=== PATIENT | female | born 1945 | race Caucasian/White ===

== ENCOUNTER 2022-02-11 08:39 | Outpatient (CLI) | payer MEDICAID, SELFPAY | END 2022-02-11 08:40 | disposition home or self-care (01) | LOC: WOUND 08:40 | PROVIDERS: Visit Provider Nurse Practitioner Family | DX: I83.023 Varicose veins of left lower extremity with ulcer of ankle (principal); L97.329 Non-pressure chronic ulcer of left ankle with unspecified severity | CPT/HCPCS: 11042 ==

== ENCOUNTER 2022-02-18 08:41 | Outpatient (CLI) | payer MEDICAID, SELFPAY | END 2022-02-18 08:42 | disposition home or self-care (01) | LOC: WOUND 08:42 | PROVIDERS: Visit Provider Surgery | DX: I83.025 Varicose veins of left lower extremity with ulcer other part of foot (principal); L97.522 Non-pressure chronic ulcer of other part of left foot with fat layer exposed | CPT/HCPCS: 97597 ==

== ENCOUNTER 2022-02-25 08:57 | Outpatient (CLI) | payer MEDICAID, SELFPAY | END 2022-02-25 08:58 | disposition home or self-care (01) | LOC: WOUND 08:57 | PROVIDERS: Visit Provider Surgery | DX: I83.025 Varicose veins of left lower extremity with ulcer other part of foot (principal); L97.522 Non-pressure chronic ulcer of other part of left foot with fat layer exposed | CPT/HCPCS: 11042; 15271; Q4128 ==

== ENCOUNTER 2022-03-04 08:24 | Outpatient (CLI) | payer MEDICAID, SELFPAY | END 2022-03-04 08:25 | disposition home or self-care (01) | LOC: WOUND 08:25 | PROVIDERS: Visit Provider Surgery | DX: I83.025 Varicose veins of left lower extremity with ulcer other part of foot (principal); L97.522 Non-pressure chronic ulcer of other part of left foot with fat layer exposed; I70.243 Atherosclerosis of native arteries of left leg with ulceration of ankle; L97.322 Non-pressure chronic ulcer of left ankle with fat layer exposed | CPT/HCPCS: 99214 ==

== ENCOUNTER 2022-03-11 08:22 | Outpatient (CLI) | payer MEDICAID, SELFPAY | END 2022-03-11 08:23 | disposition home or self-care (01) | LOC: WOUND 08:22 | PROVIDERS: Visit Provider Surgery | DX: I83.023 Varicose veins of left lower extremity with ulcer of ankle (principal); L97.329 Non-pressure chronic ulcer of left ankle with unspecified severity | CPT/HCPCS: 97597 ==

== ENCOUNTER 2022-03-18 08:21 | Outpatient (CLI) | payer MEDICARE, SELFPAY | END 2022-03-18 08:22 | disposition home or self-care (01) | PROVIDERS: Visit Provider Surgery | DX: I83.025 Varicose veins of left lower extremity with ulcer other part of foot (principal); L97.522 Non-pressure chronic ulcer of other part of left foot with fat layer exposed | CPT/HCPCS: 97602 ==

== ENCOUNTER 2022-03-25 08:11 | Outpatient (CLI) | payer MEDICARE, SELFPAY | END 2022-03-25 08:12 | disposition home or self-care (01) | LOC: WOUND 08:11 | PROVIDERS: Visit Provider Surgery | DX: I83.025 Varicose veins of left lower extremity with ulcer other part of foot (principal); L97.522 Non-pressure chronic ulcer of other part of left foot with fat layer exposed | CPT/HCPCS: 99213 ==

== ENCOUNTER 2022-04-01 07:57 | Outpatient (CLI) | payer MEDICARE, SELFPAY | END 2022-04-01 07:58 | disposition home or self-care (01) | PROVIDERS: Visit Provider Surgery | DX: S91.002A Unspecified open wound, left ankle, initial encounter (principal) | CPT/HCPCS: 97597 ==

== ENCOUNTER 2022-04-08 08:05 | Outpatient (CLI) | payer MEDICARE, SELFPAY | END 2022-04-08 08:06 | disposition home or self-care (01) | LOC: WOUND 08:06 | PROVIDERS: Visit Provider Surgery | DX: I83.025 Varicose veins of left lower extremity with ulcer other part of foot (principal); L97.522 Non-pressure chronic ulcer of other part of left foot with fat layer exposed | CPT/HCPCS: 99213 ==

== ENCOUNTER 2022-04-15 08:11 | Outpatient (CLI) | payer MEDICARE, SELFPAY | END 2022-04-15 08:12 | disposition home or self-care (01) | LOC: WOUND 08:11 | PROVIDERS: Visit Provider Surgery | DX: I87.312 Chronic venous hypertension (idiopathic) with ulcer of left lower extremity (principal); L97.322 Non-pressure chronic ulcer of left ankle with fat layer exposed | CPT/HCPCS: 97597 ==

== ENCOUNTER 2022-04-22 09:20 | Outpatient (CLI) | payer MEDICARE, SELFPAY | END 2022-04-22 09:21 | disposition home or self-care (01) | LOC: WOUND 09:20 | PROVIDERS: Visit Provider Surgery | DX: I83.025 Varicose veins of left lower extremity with ulcer other part of foot (principal); L97.522 Non-pressure chronic ulcer of other part of left foot with fat layer exposed | CPT/HCPCS: 99213 ==

== ENCOUNTER 2022-04-29 08:06 | Outpatient (CLI) | payer MEDICARE, SELFPAY | END 2022-04-29 08:07 | disposition home or self-care (01) | PROVIDERS: Visit Provider Surgery | DX: I83.023 Varicose veins of left lower extremity with ulcer of ankle (principal); L97.329 Non-pressure chronic ulcer of left ankle with unspecified severity | CPT/HCPCS: 97597 ==

== ENCOUNTER 2022-05-06 08:08 | Outpatient (CLI) | payer MEDICARE, SELFPAY | END 2022-05-06 08:09 | disposition home or self-care (01) | LOC: WOUND 08:08 | PROVIDERS: Visit Provider Surgery | DX: I83.025 Varicose veins of left lower extremity with ulcer other part of foot (principal); L97.522 Non-pressure chronic ulcer of other part of left foot with fat layer exposed | CPT/HCPCS: 15275; Q4158 ==

== ENCOUNTER 2022-05-13 08:44 | Outpatient (CLI) | payer MEDICARE, SELFPAY | END 2022-05-13 08:45 | disposition home or self-care (01) | LOC: WOUND 08:45 | PROVIDERS: Visit Provider Surgery | DX: I83.023 Varicose veins of left lower extremity with ulcer of ankle (principal); L97.328 Non-pressure chronic ulcer of left ankle with other specified severity; L97.329 Non-pressure chronic ulcer of left ankle with unspecified severity | CPT/HCPCS: 15271; 15275; 97597; Q4158 ==

== ENCOUNTER 2022-05-20 08:09 | Outpatient (CLI) | payer MEDICARE, SELFPAY | END 2022-05-20 08:10 | disposition home or self-care (01) | LOC: WOUND 08:09 | PROVIDERS: Visit Provider Surgery | DX: I83.023 Varicose veins of left lower extremity with ulcer of ankle (principal); L97.329 Non-pressure chronic ulcer of left ankle with unspecified severity | CPT/HCPCS: 97597 ==

== ENCOUNTER 2022-05-27 08:10 | Outpatient (CLI) | payer MEDICARE, SELFPAY | END 2022-05-27 08:11 | disposition home or self-care (01) | LOC: WOUND 08:10 | PROVIDERS: Visit Provider Surgery | DX: I83.023 Varicose veins of left lower extremity with ulcer of ankle (principal); L97.329 Non-pressure chronic ulcer of left ankle with unspecified severity | CPT/HCPCS: 97597 ==

== ENCOUNTER 2022-06-03 08:08 | Outpatient (CLI) | payer MEDICARE, SELFPAY | END 2022-06-03 08:09 | disposition home or self-care (01) | LOC: WOUND 08:08 | PROVIDERS: Visit Provider Nurse Practitioner Family | DX: I83.023 Varicose veins of left lower extremity with ulcer of ankle (principal); L97.329 Non-pressure chronic ulcer of left ankle with unspecified severity | CPT/HCPCS: 11042 ==

== ENCOUNTER 2022-06-10 08:10 | Outpatient (CLI) | payer MEDICARE, SELFPAY | END 2022-06-10 08:11 | disposition home or self-care (01) | LOC: WOUND 08:10 | PROVIDERS: Visit Provider Surgery | DX: I83.023 Varicose veins of left lower extremity with ulcer of ankle (principal); L97.329 Non-pressure chronic ulcer of left ankle with unspecified severity | CPT/HCPCS: 97597 ==

== ENCOUNTER 2022-06-17 08:09 | Outpatient (CLI) | payer MEDICARE, SELFPAY | END 2022-06-17 08:10 | disposition home or self-care (01) | LOC: WOUND 08:10 | PROVIDERS: Visit Provider Surgery | DX: I83.023 Varicose veins of left lower extremity with ulcer of ankle (principal); L97.329 Non-pressure chronic ulcer of left ankle with unspecified severity | CPT/HCPCS: 97597 ==

== ENCOUNTER 2022-06-24 08:09 | Outpatient (CLI) | payer MEDICARE, SELFPAY | END 2022-06-24 08:10 | disposition home or self-care (01) | LOC: WOUND 08:09 | PROVIDERS: Visit Provider Surgery | DX: I83.023 Varicose veins of left lower extremity with ulcer of ankle (principal); L97.328 Non-pressure chronic ulcer of left ankle with other specified severity | CPT/HCPCS: 15271; 97597; Q4158 ==

== ENCOUNTER 2022-07-01 08:06 | Outpatient (CLI) | payer MEDICARE, SELFPAY | END 2022-07-01 08:07 | disposition home or self-care (01) | LOC: WOUND 08:06 | PROVIDERS: Visit Provider Surgery | DX: I83.023 Varicose veins of left lower extremity with ulcer of ankle (principal); L97.328 Non-pressure chronic ulcer of left ankle with other specified severity | CPT/HCPCS: 15271; 15275; Q4158 ==

== ENCOUNTER 2022-07-08 08:08 | Outpatient (CLI) | payer MEDICARE, SELFPAY | END 2022-07-08 08:09 | disposition home or self-care (01) | LOC: WOUND 08:08 | PROVIDERS: Visit Provider Surgery | DX: I83.025 Varicose veins of left lower extremity with ulcer other part of foot (principal); L97.522 Non-pressure chronic ulcer of other part of left foot with fat layer exposed | CPT/HCPCS: 97597 ==

== ENCOUNTER 2022-07-22 08:07 | Outpatient (CLI) | payer MEDICARE, SELFPAY | END 2022-07-22 08:08 | disposition home or self-care (01) | LOC: WOUND 08:08 | PROVIDERS: Visit Provider Surgery | DX: I83.025 Varicose veins of left lower extremity with ulcer other part of foot (principal); L97.522 Non-pressure chronic ulcer of other part of left foot with fat layer exposed | CPT/HCPCS: 97597 ==

== ENCOUNTER 2022-07-29 08:09 | Outpatient (CLI) | payer MEDICARE, SELFPAY | END 2022-07-29 08:10 | disposition home or self-care (01) | LOC: WOUND 08:09 | PROVIDERS: Visit Provider Nurse Practitioner Family | DX: I83.023 Varicose veins of left lower extremity with ulcer of ankle (principal); L97.328 Non-pressure chronic ulcer of left ankle with other specified severity | CPT/HCPCS: 11042 ==

== ENCOUNTER 2022-08-05 08:04 | Outpatient (CLI) | payer MEDICARE, SELFPAY | END 2022-08-05 08:05 | disposition home or self-care (01) | LOC: WOUND 08:04 | PROVIDERS: Visit Provider Surgery | DX: I83.025 Varicose veins of left lower extremity with ulcer other part of foot (principal); L97.522 Non-pressure chronic ulcer of other part of left foot with fat layer exposed | CPT/HCPCS: 97602; 99213 ==

== ENCOUNTER 2022-08-12 08:03 | Outpatient (CLI) | payer MEDICARE, SELFPAY | END 2022-08-12 08:04 | disposition home or self-care (01) | LOC: WOUND 08:03 | PROVIDERS: Visit Provider Surgery | DX: I83.025 Varicose veins of left lower extremity with ulcer other part of foot (principal); L97.522 Non-pressure chronic ulcer of other part of left foot with fat layer exposed; I83.023 Varicose veins of left lower extremity with ulcer of ankle; L97.329 Non-pressure chronic ulcer of left ankle with unspecified severity | CPT/HCPCS: 99213 ==

== ENCOUNTER 2022-08-27 10:15 | Outpatient (CLI) | payer MEDICARE, SELFPAY | END 2022-08-27 10:16 | disposition home or self-care (01) | PROVIDERS: Visit Provider Nurse Practitioner Family | DX: I83.023 Varicose veins of left lower extremity with ulcer of ankle (principal); L97.329 Non-pressure chronic ulcer of left ankle with unspecified severity; I83.025 Varicose veins of left lower extremity with ulcer other part of foot; L97.522 Non-pressure chronic ulcer of other part of left foot with fat layer exposed | CPT/HCPCS: 97597 ==

== ENCOUNTER 2022-09-02 07:49 | Outpatient (CLI) | payer MEDICARE, SELFPAY | END 2022-09-02 07:50 | disposition home or self-care (01) | LOC: WOUND 07:49 | PROVIDERS: Visit Provider Surgery | DX: I83.025 Varicose veins of left lower extremity with ulcer other part of foot (principal); L97.522 Non-pressure chronic ulcer of other part of left foot with fat layer exposed; L97.329 Non-pressure chronic ulcer of left ankle with unspecified severity | CPT/HCPCS: 99213 ==

== ENCOUNTER 2022-09-09 08:08 | Outpatient (CLI) | payer MEDICARE, SELFPAY | END 2022-09-09 08:09 | disposition home or self-care (01) | LOC: WOUND 08:08 | PROVIDERS: Visit Provider Surgery | DX: I83.025 Varicose veins of left lower extremity with ulcer other part of foot (principal); L97.522 Non-pressure chronic ulcer of other part of left foot with fat layer exposed; I83.023 Varicose veins of left lower extremity with ulcer of ankle; L97.328 Non-pressure chronic ulcer of left ankle with other specified severity | CPT/HCPCS: 97597 ==

== ENCOUNTER 2022-09-16 08:15 | Outpatient (CLI) | payer MEDICARE, SELFPAY | END 2022-09-16 08:16 | disposition home or self-care (01) | LOC: WOUND 08:15 | PROVIDERS: Visit Provider Surgery | DX: I83.025 Varicose veins of left lower extremity with ulcer other part of foot (principal); L97.522 Non-pressure chronic ulcer of other part of left foot with fat layer exposed; I83.023 Varicose veins of left lower extremity with ulcer of ankle; L97.328 Non-pressure chronic ulcer of left ankle with other specified severity | CPT/HCPCS: 97597; 99213 ==

== ENCOUNTER 2022-09-23 08:19 | Outpatient (CLI) | payer MEDICARE, SELFPAY | END 2022-09-23 08:20 | disposition home or self-care (01) | LOC: WOUND 08:19 | PROVIDERS: Visit Provider Physician Assistant Surgical | DX: I83.025 Varicose veins of left lower extremity with ulcer other part of foot (principal); L97.522 Non-pressure chronic ulcer of other part of left foot with fat layer exposed; I83.023 Varicose veins of left lower extremity with ulcer of ankle; L97.329 Non-pressure chronic ulcer of left ankle with unspecified severity | CPT/HCPCS: 99212 ==

== ENCOUNTER 2022-09-30 08:08 | Outpatient (CLI) | payer MEDICARE, SELFPAY | END 2022-09-30 08:09 | disposition home or self-care (01) | LOC: WOUND 08:08 | PROVIDERS: Visit Provider Surgery | DX: I83.025 Varicose veins of left lower extremity with ulcer other part of foot (principal); L97.522 Non-pressure chronic ulcer of other part of left foot with fat layer exposed; L97.328 Non-pressure chronic ulcer of left ankle with other specified severity | CPT/HCPCS: 11102; 11104; 11105; 87102; 88305; 99212 ==

== ENCOUNTER 2022-10-07 10:15 | Outpatient (CLI) | payer MEDICARE, SELFPAY | END 2022-10-07 10:16 | disposition home or self-care (01) | LOC: WOUND 10:15 | PROVIDERS: Visit Provider Surgery | DX: I83.023 Varicose veins of left lower extremity with ulcer of ankle (principal); L97.329 Non-pressure chronic ulcer of left ankle with unspecified severity | CPT/HCPCS: 97597 ==

== ENCOUNTER 2022-10-14 08:07 | Outpatient (CLI) | payer MEDICARE, SELFPAY | END 2022-10-14 08:08 | disposition home or self-care (01) | LOC: WOUND 08:07 | PROVIDERS: Visit Provider Surgery | DX: I83.025 Varicose veins of left lower extremity with ulcer other part of foot (principal); L97.522 Non-pressure chronic ulcer of other part of left foot with fat layer exposed | CPT/HCPCS: 87070; 87186; 97597 ==

== ENCOUNTER 2022-10-21 08:08 | Outpatient (CLI) | payer MEDICARE, SELFPAY | END 2022-10-21 08:09 | disposition home or self-care (01) | LOC: WOUND 08:08 | PROVIDERS: Visit Provider Surgery | DX: I83.023 Varicose veins of left lower extremity with ulcer of ankle (principal); L97.329 Non-pressure chronic ulcer of left ankle with unspecified severity | CPT/HCPCS: 97597 ==

== ENCOUNTER 2022-10-28 07:51 | Outpatient (CLI) | payer MEDICARE, SELFPAY | END 2022-10-28 07:52 | disposition home or self-care (01) | LOC: WOUND 07:51 | PROVIDERS: Visit Provider Surgery | DX: I83.023 Varicose veins of left lower extremity with ulcer of ankle (principal); L97.322 Non-pressure chronic ulcer of left ankle with fat layer exposed | CPT/HCPCS: 97597 ==

== ENCOUNTER 2022-11-04 09:44 | Outpatient (CLI) | payer MEDICARE, SELFPAY | END 2022-11-04 09:45 | disposition home or self-care (01) | LOC: WOUND 09:44 | PROVIDERS: Visit Provider Surgery | DX: I83.023 Varicose veins of left lower extremity with ulcer of ankle (principal); L97.322 Non-pressure chronic ulcer of left ankle with fat layer exposed; I83.025 Varicose veins of left lower extremity with ulcer other part of foot; L97.522 Non-pressure chronic ulcer of other part of left foot with fat layer exposed | CPT/HCPCS: 99213 ==

== ENCOUNTER 2022-11-11 09:50 | Outpatient (CLI) | payer MEDICARE, SELFPAY | END 2022-11-11 09:51 | disposition home or self-care (01) | LOC: WOUND 09:50 | PROVIDERS: Visit Provider Surgery | DX: I83.023 Varicose veins of left lower extremity with ulcer of ankle (principal); L97.329 Non-pressure chronic ulcer of left ankle with unspecified severity | CPT/HCPCS: 97597 ==

== ENCOUNTER 2022-11-18 09:44 | Outpatient (CLI) | payer MEDICARE, SELFPAY | END 2022-11-18 09:45 | disposition home or self-care (01) | LOC: WOUND 09:44 | PROVIDERS: Visit Provider Physician Assistant Surgical | DX: I83.023 Varicose veins of left lower extremity with ulcer of ankle (principal); L97.329 Non-pressure chronic ulcer of left ankle with unspecified severity | CPT/HCPCS: 11042 ==

== ENCOUNTER 2022-11-25 09:51 | Outpatient (CLI) | payer MEDICARE, SELFPAY | END 2022-11-25 09:52 | disposition home or self-care (01) | LOC: WOUND 09:51 | PROVIDERS: Visit Provider Surgery | DX: I83.023 Varicose veins of left lower extremity with ulcer of ankle (principal); L97.329 Non-pressure chronic ulcer of left ankle with unspecified severity | CPT/HCPCS: 97597 ==

== ENCOUNTER 2022-12-02 09:43 | Outpatient (CLI) | payer MEDICARE, SELFPAY | END 2022-12-02 09:44 | disposition home or self-care (01) | LOC: WOUND 09:43 | PROVIDERS: Visit Provider Surgery | DX: I83.023 Varicose veins of left lower extremity with ulcer of ankle (principal); L97.329 Non-pressure chronic ulcer of left ankle with unspecified severity | CPT/HCPCS: 97597 ==

== ENCOUNTER 2022-12-09 09:49 | Outpatient (CLI) | payer MEDICARE, SELFPAY | END 2022-12-09 09:50 | disposition home or self-care (01) | LOC: WOUND 09:49 | PROVIDERS: Visit Provider Surgery | DX: I83.023 Varicose veins of left lower extremity with ulcer of ankle (principal); L97.328 Non-pressure chronic ulcer of left ankle with other specified severity | CPT/HCPCS: 97597 ==

== ENCOUNTER 2022-12-30 09:50 | Outpatient (CLI) | payer MEDICARE, SELFPAY ==
[2022-12-30 16:21] LABS: Ferritin* 13.7 ng/mL (11.1-264.0)
[2023-01-01 05:24] LABS: Zinc, Serum/Plasma 89.4 ug/dL (60.0-120.0)
== END 2022-12-30 09:51 | disposition home or self-care (01) ==
LOC: WOUND 09:50
PROVIDERS: Visit Provider Surgery
DX: I83.023 Varicose veins of left lower extremity with ulcer of ankle (principal); L97.322 Non-pressure chronic ulcer of left ankle with fat layer exposed; E61.1 Iron deficiency; Z13.21 Encounter for screening for nutritional disorder; Z13.1 Encounter for screening for diabetes mellitus; Z13.89 Encounter for screening for other disorder
CPT/HCPCS: 36415; 82728; 83036; 84134; 84630; 97597; 99212

== ENCOUNTER 2023-01-20 09:53 | Outpatient (CLI) | payer MEDICARE, SELFPAY | END 2023-01-20 09:54 | disposition home or self-care (01) | LOC: WOUND 09:53 | PROVIDERS: Visit Provider Surgery | DX: L97.322 Non-pressure chronic ulcer of left ankle with fat layer exposed (principal) | CPT/HCPCS: 97597 ==

== ENCOUNTER 2023-01-27 09:47 | Outpatient (CLI) | payer MEDICARE, SELFPAY | END 2023-01-27 09:48 | disposition home or self-care (01) | LOC: WOUND 09:47 | PROVIDERS: Visit Provider Surgery | DX: I83.023 Varicose veins of left lower extremity with ulcer of ankle (principal); L97.322 Non-pressure chronic ulcer of left ankle with fat layer exposed | CPT/HCPCS: 99212 ==

== ENCOUNTER 2023-02-03 09:52 | Outpatient (CLI) | payer MEDICARE, SELFPAY | END 2023-02-03 09:53 | disposition home or self-care (01) | LOC: WOUND 09:52 | PROVIDERS: Visit Provider Surgery | DX: I83.023 Varicose veins of left lower extremity with ulcer of ankle (principal); L97.322 Non-pressure chronic ulcer of left ankle with fat layer exposed | CPT/HCPCS: 99212 ==

== ENCOUNTER 2023-02-17 07:53 | Outpatient (CLI) | payer MEDICARE, SELFPAY | END 2023-02-17 07:54 | disposition home or self-care (01) | PROVIDERS: Visit Provider Surgery | DX: I83.023 Varicose veins of left lower extremity with ulcer of ankle (principal); L97.322 Non-pressure chronic ulcer of left ankle with fat layer exposed | CPT/HCPCS: 97597 ==

== ENCOUNTER 2023-02-24 09:55 | Outpatient (CLI) | payer MEDICARE, SELFPAY | END 2023-02-24 09:56 | disposition home or self-care (01) | LOC: WOUND 09:55 | PROVIDERS: Visit Provider Surgery | DX: I83.023 Varicose veins of left lower extremity with ulcer of ankle (principal); L97.322 Non-pressure chronic ulcer of left ankle with fat layer exposed | CPT/HCPCS: 97597 ==

== ENCOUNTER 2023-03-03 07:58 | Outpatient (CLI) | payer MEDICARE, SELFPAY | END 2023-03-03 07:59 | disposition home or self-care (01) | LOC: WOUND 07:58 | PROVIDERS: Visit Provider Physician Assistant Surgical | DX: I83.023 Varicose veins of left lower extremity with ulcer of ankle (principal); L97.322 Non-pressure chronic ulcer of left ankle with fat layer exposed | CPT/HCPCS: 11042 ==

== ENCOUNTER 2023-03-03 08:49 | Outpatient (CLI) | payer MEDICARE, SELFPAY ==
--- NOTE | 2023-03-03 09:15 | CRLHL7_ITS ---
For Patients: As a result of the Century Cures Act, medical imaging exams and procedure reports are released immediately into your electronic medical record. You may view this report before your referring provider. If you have questions, please contact your health care provider. INDICATION: Nonhealing wound. Evaluate for peripheral vascular disease. TECHNIQUE: The bilateral lower extremity arteries were examined per exam specific protocol. Ultrasound performed using real-time lyons scale imaging (B-mode 2D), color-flow Doppler and spectral analysis. Peak systolic velocities (PSV), Doppler waveform quality and velocity ratios if applicable, were documented at sites per exam specific protocol. COMPARISON: None available FINDINGS: RIGHT: BULK PICKER: 133 cm/sec; triphasic waveforms PFA: 68 cm/sec; triphasic waveforms SFA PROX: 106 cm/sec; triphasic waveforms SFA MID: 90 cm/sec; triphasic waveforms SFA DIST: 84 cm/sec; triphasic waveforms POP: 55 cm/sec; triphasic waveforms REGISTRATION REP: 66 cm/sec; triphasic waveforms Peroneal: 70 cm/sec; triphasic waveforms AMINAH: 41 cm/sec; triphasic waveforms DPA: 67 cm/sec; triphasic waveforms LEFT: BULK PICKER: 105 cm/sec; triphasic waveforms PFA: 67 cm/sec; triphasic waveforms SFA PROX: 93 cm/sec; triphasic waveforms SFA MID: 92 cm/sec; triphasic waveforms SFA DIST: 85 cm/sec; triphasic waveforms POP: 78 cm/sec; triphasic waveforms REGISTRATION REP: 89 cm/sec; triphasic waveforms Peroneal: 99 cm/sec; triphasic waveforms AMINAH: 62 cm/sec; triphasic waveforms DPA: 91 cm/sec; triphasic waveforms IMPRESSION: No sonographic evidence of arterial occlusion or hemodynamically significant stenosis of bilateral lower extremities. Dictated by Dylan Mercer MD @ 03/04/2023 9:37:06 AM (Electronically Signed)
== END 2023-03-03 08:50 | disposition home or self-care (01) ==
LOC: US 08:49
PROVIDERS: Visit Provider Surgery
DX: L97.329 Non-pressure chronic ulcer of left ankle with unspecified severity (principal)
CPT/HCPCS: 93926

== ENCOUNTER 2023-03-04 08:33 | Outpatient (CLI) | payer MEDICARE, SELFPAY ==
--- NOTE | 2023-03-04 08:45 | CRLHL7_ITS ---
For Patients: As a result of the Century Cures Act, medical imaging exams and procedure reports are released immediately into your electronic medical record. You may view this report before your referring provider. If you have questions, please contact your health care provider. BILATERAL LOWER EXTREMITY VENOUS INSUFFICIENCY 03/04/2023 CLINICAL HISTORY: Non healing ulcer. COMPARISON: None. TECHNIQUE: The bilateral lower extremity veins were examined with lyons-scale ultrasound, color-flow and Doppler spectral analysis. Compressibility of the veins by transducer pressure was used to evaluate the presence or absence of DVT/SVT at sites per exam specific protocol. Assessment of venous competence was performed by Doppler spectral analysis and was performed and documented at exam specific sites in an upright position for venous insufficiency studies. 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 -Status post ablation of the GSV throughout its course from the proximal thigh to distal calf. -Electromyographic Technician in the mid to distal calf arising from the posterior tibial vein measuring 3 mm which is competent. Left lower extremity: -No deep venous thrombosis. -GSV in the calf is not well evaluate secondary to small size. DEEP SYSTEM: RIGHT: Vessel: DVT: Y. CFV: Competent. DVT: N. SFV Prox: Competent. .7 mm. DVT: N. SFV Mid: Incompetent. 2.6 mm. DVT: N. SFV Distal: Incompetent. 1.7 mm. DVT: N. Pop: Incompetent. 2.7 mm. DVT: N. PTV1: Incompetent. 1 mm. DVT: N. PTV2: Competent. .4 mm. LEFT: Vessel: DVT: N. CFV: Incompetent. 1.8 mm. DVT: N. SFV Prox: Incompetent. 1.2 mm. DVT: N. SFV Mid: Incompetent. 1.4 mm. DVT: N. SFV Distal: Incompetent. 1.9 mm. DVT: N. Pop: Incompetent. 1.4 mm. DVT: N. PTV1: Competent. .8 mm. DVT: N. PTV2: Competent. .8 mm. SUPERFICIAL SYSTEM: RIGHT: Vessel: SFJ: 8 mm. LSV Prox: 6 mm. LSV Mid: Competent. LEFT: SFJ: Competent. 7 mm. GSV Thigh Prox: Incompetent. .8. 6 mm. GSV Thigh Mid: Competent. 5 mm. GSV Thigh Distal: Competent. 2 mm. GSV Calf Prox: N/A too small GSV Calf Mid: N/A too small GSV Calf Distal: N/A too small LSV Calf Prox: 5 mm. LSV Calf Mid: Incompetent. 1.1 mm. IMPRESSION: 1. Right lower extremity: -No acute deep venous thrombosis. 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 - Deep venous incompetence in the mid and distal femoral vein in the mid as well as the popliteal vei -Status post ablation of the GSV from the proximal thigh to low calf. No acute superficial venous thrombosis or incompetence. -Perforating vein arising from the posterior tibial vein, as described above. 2. Left lower extremity: -No deep venous thrombosis. -Deep venous incompetence in the common femoral vein, femoral vein and popliteal vein. -No superficial venous thrombosis. Of note, GSV in the calf is not well seen secondary to diminutive caliber. -Superficial venous incompetence in the GSV in the proximal thigh and lesser saphenous vein in the mid calf. Rosalva Lopez M.D. [email or web address] Transcribed: 1:43 pm DW/Dictated by: Rosalva Lopez MD @ 03/05/2023 11:05:00 AM (Electronically Signed)
== END 2023-03-04 08:34 | disposition home or self-care (01) ==
LOC: US 08:33
PROVIDERS: Visit Provider Surgery
DX: L97.329 Non-pressure chronic ulcer of left ankle with unspecified severity (principal)
CPT/HCPCS: 93970

== ENCOUNTER 2023-03-10 10:10 | Outpatient (CLI) | payer MEDICARE, SELFPAY | END 2023-03-10 10:11 | disposition home or self-care (01) | LOC: WOUND 10:10 | PROVIDERS: Visit Provider Surgery | DX: I83.023 Varicose veins of left lower extremity with ulcer of ankle (principal); L97.322 Non-pressure chronic ulcer of left ankle with fat layer exposed; I83.025 Varicose veins of left lower extremity with ulcer other part of foot; L97.529 Non-pressure chronic ulcer of other part of left foot with unspecified severity | CPT/HCPCS: 97597; 99212 ==

== ENCOUNTER 2023-03-17 08:40 | Outpatient (CLI) | payer MEDICARE, SELFPAY | END 2023-03-17 08:41 | disposition home or self-care (01) | LOC: WOUND 08:40 | PROVIDERS: Visit Provider Surgery | DX: I83.023 Varicose veins of left lower extremity with ulcer of ankle (principal); L97.322 Non-pressure chronic ulcer of left ankle with fat layer exposed | CPT/HCPCS: 97597 ==

== ENCOUNTER 2023-03-24 08:45 | Outpatient (CLI) | payer MEDICARE, SELFPAY | END 2023-03-24 08:46 | disposition home or self-care (01) | LOC: WOUND 08:45 | PROVIDERS: Visit Provider Surgery | DX: I83.023 Varicose veins of left lower extremity with ulcer of ankle (principal); L97.322 Non-pressure chronic ulcer of left ankle with fat layer exposed | CPT/HCPCS: 97597 ==

== ENCOUNTER 2023-03-31 08:37 | Outpatient (CLI) | payer MEDICARE, SELFPAY | END 2023-03-31 08:38 | disposition home or self-care (01) | LOC: WOUND 08:37 | PROVIDERS: Visit Provider Surgery | DX: I83.023 Varicose veins of left lower extremity with ulcer of ankle (principal); L97.329 Non-pressure chronic ulcer of left ankle with unspecified severity | CPT/HCPCS: 97597 ==

== ENCOUNTER 2023-04-14 08:46 | Outpatient (CLI) | payer MEDICARE, SELFPAY | END 2023-04-14 08:47 | disposition home or self-care (01) | LOC: WOUND 08:46 | PROVIDERS: Visit Provider Surgery | DX: I83.023 Varicose veins of left lower extremity with ulcer of ankle (principal); L97.328 Non-pressure chronic ulcer of left ankle with other specified severity | CPT/HCPCS: 97597 ==

== ENCOUNTER 2023-04-28 08:46 | Outpatient (CLI) | payer MEDICARE, SELFPAY | END 2023-04-28 08:47 | disposition home or self-care (01) | LOC: WOUND 08:46 | PROVIDERS: Visit Provider Surgery | DX: I83.023 Varicose veins of left lower extremity with ulcer of ankle (principal); L97.328 Non-pressure chronic ulcer of left ankle with other specified severity; L97.322 Non-pressure chronic ulcer of left ankle with fat layer exposed | CPT/HCPCS: 97597; 99212 ==

== ENCOUNTER 2023-05-12 08:50 | Outpatient (CLI) | payer MEDICARE, SELFPAY | END 2023-05-12 08:51 | disposition home or self-care (01) | LOC: WOUND 08:50 | PROVIDERS: Visit Provider Surgery | DX: I83.023 Varicose veins of left lower extremity with ulcer of ankle (principal); L97.322 Non-pressure chronic ulcer of left ankle with fat layer exposed | CPT/HCPCS: 97597; 97602 ==

== ENCOUNTER 2023-05-19 08:02 | Outpatient (CLI) | payer MEDICARE, SELFPAY | END 2023-05-19 08:03 | disposition home or self-care (01) | LOC: WOUND 08:02 | PROVIDERS: Visit Provider Surgery | DX: I83.023 Varicose veins of left lower extremity with ulcer of ankle (principal); L97.322 Non-pressure chronic ulcer of left ankle with fat layer exposed | CPT/HCPCS: 97597 ==

== ENCOUNTER 2023-05-26 08:52 | Outpatient (CLI) | payer MEDICARE, SELFPAY | END 2023-05-26 08:53 | disposition home or self-care (01) | LOC: WOUND 08:52 | PROVIDERS: Visit Provider Surgery | DX: I83.023 Varicose veins of left lower extremity with ulcer of ankle (principal); L97.328 Non-pressure chronic ulcer of left ankle with other specified severity | CPT/HCPCS: 97597; 97602 ==

== ENCOUNTER 2023-06-02 08:54 | Outpatient (CLI) | payer MEDICARE, SELFPAY ==
[2023-06-02 10:06] LABS: Basophils Absolute Auto 0.04 K/uL (0.00-0.30); Basophils Percent Auto 0.8 % (0.0-3.0); Eosinophils Percent Auto 9.5 % (0.0-7.0); Hemoglobin* 14.5 gm/dL (12.0-16.0); Lymphocytes Absolute Auto 1.14 K/uL (0.90-2.90); Lymphocytes Percent Auto 22.1 % (20-44); Mean Corpuscular HGB Conc 32 gm/dL (32-36); Mean Corpuscular Hemoglobin 30 pg (26-34); Mean Corpuscular Volume 93 fL (80-100); Monocytes Percent Auto 7.6 % (0.0-11.0); Platelet Count* 250 K/uL (140-440); RDW Coefficient of Variation % 14.4 % (11.5-15.5); Red Blood Count 4.82 m/uL (4.00-5.20); White Blood Count* 5.16 K/uL (4.50-11.00)
[2023-06-02 10:07] LABS: Slide Review Reflex No
[2023-06-02 10:26] LABS: Albumin* 4.4 g/dL (3.3-5.0); Chloride* 104 mmol/L (96-114); Sodium* 138 mmol/L (135-149)
[2023-06-02 10:27] LABS: Potassium* 4.3 mmol/L (3.6-5.1)
[2023-06-02 10:29] LABS: Alanine Aminotransferase* 32 U/L (4-35); Alkaline Phosphatase* 73 U/L (40-150); Anion Gap 8 mEq/L (7-15); Aspartate Amino Transferase* 45 U/L (12-35); Bilirubin Total* 0.5 mg/dL (0.1-1.5); Blood Urea Nitrogen* 18 mg/dL (7-30); Carbon Dioxide* 26 mmol/L (20-32); Creatinine* 0.7 mg/dL (0.5-1.5); Estimated Glomerular Filt Rate 90 ml/min; Total Protein* 7.7 g/dL (6.0-8.3)
[2023-06-02 10:30] LABS: Calcium* 9.6 mg/dL (8.4-10.6); Glucose* 88 mg/dL (60-115)
[2023-06-02 10:33] LABS: C Reactive Protein* < 0.5 mg/dL (0.5-1.0)
[2023-06-02 10:52] LABS: Erythrocyte SedimentationRate* 2 mm/hr (2-20)
== END 2023-06-02 08:55 | disposition home or self-care (01) ==
LOC: WOUND 08:54
PROVIDERS: Visit Provider Family Medicine
DX: I83.223 Varicose veins of left lower extremity with both ulcer of ankle and inflammation (principal); L97.328 Non-pressure chronic ulcer of left ankle with other specified severity
CPT/HCPCS: 11042; 36415; 80053; 85025; 85651; 86140

== ENCOUNTER 2023-06-16 08:50 | Outpatient (CLI) | payer MEDICARE, SELFPAY | END 2023-06-16 08:51 | disposition home or self-care (01) | PROVIDERS: Visit Provider Surgery | DX: I83.223 Varicose veins of left lower extremity with both ulcer of ankle and inflammation (principal); L97.328 Non-pressure chronic ulcer of left ankle with other specified severity | CPT/HCPCS: 97597 ==

== ENCOUNTER 2023-06-23 08:04 | Outpatient (CLI) | payer MEDICARE, SELFPAY | END 2023-06-23 08:05 | disposition home or self-care (01) | LOC: WOUND 08:04 | PROVIDERS: Visit Provider Surgery | DX: I83.223 Varicose veins of left lower extremity with both ulcer of ankle and inflammation (principal); L97.328 Non-pressure chronic ulcer of left ankle with other specified severity | CPT/HCPCS: 97597 ==

== ENCOUNTER 2023-06-30 08:04 | Outpatient (CLI) | payer MEDICARE, SELFPAY | END 2023-06-30 08:05 | disposition home or self-care (01) | LOC: WOUND 08:04 | PROVIDERS: Visit Provider Surgery | DX: I83.023 Varicose veins of left lower extremity with ulcer of ankle (principal); L97.322 Non-pressure chronic ulcer of left ankle with fat layer exposed; L97.328 Non-pressure chronic ulcer of left ankle with other specified severity | CPT/HCPCS: 97597 ==

== ENCOUNTER 2023-07-07 08:14 | Outpatient (CLI) | payer MEDICARE, SELFPAY | END 2023-07-07 08:15 | disposition home or self-care (01) | LOC: WOUND 08:14 | PROVIDERS: Visit Provider Surgery | DX: I83.223 Varicose veins of left lower extremity with both ulcer of ankle and inflammation (principal); L97.322 Non-pressure chronic ulcer of left ankle with fat layer exposed | CPT/HCPCS: 97597 ==

== ENCOUNTER 2023-07-14 08:10 | Outpatient (CLI) | payer MEDICARE, SELFPAY | END 2023-07-14 08:11 | disposition home or self-care (01) | LOC: WOUND 08:10 | PROVIDERS: Visit Provider Surgery | DX: I83.023 Varicose veins of left lower extremity with ulcer of ankle (principal); L97.322 Non-pressure chronic ulcer of left ankle with fat layer exposed | CPT/HCPCS: 97597; 99212 ==

== ENCOUNTER 2023-07-21 08:09 | Outpatient (CLI) | payer MEDICARE, SELFPAY | END 2023-07-21 08:10 | disposition home or self-care (01) | LOC: WOUND 08:09 | PROVIDERS: Visit Provider Surgery | DX: I83.023 Varicose veins of left lower extremity with ulcer of ankle (principal); L97.322 Non-pressure chronic ulcer of left ankle with fat layer exposed | CPT/HCPCS: 15271; 15275; Q4101 ==

== ENCOUNTER 2023-07-28 08:09 | Outpatient (CLI) | payer MEDICARE, SELFPAY | END 2023-07-28 08:10 | disposition home or self-care (01) | LOC: WOUND 08:09 | PROVIDERS: Visit Provider Physician Assistant | DX: I83.023 Varicose veins of left lower extremity with ulcer of ankle (principal); L97.322 Non-pressure chronic ulcer of left ankle with fat layer exposed | CPT/HCPCS: 11042 ==

== ENCOUNTER 2023-08-11 08:00 | Outpatient (CLI) | payer MEDICARE, SELFPAY | END 2023-08-11 08:01 | disposition home or self-care (01) | LOC: WOUND 08:00 | PROVIDERS: Visit Provider Physician Assistant Surgical | DX: I83.223 Varicose veins of left lower extremity with both ulcer of ankle and inflammation (principal); L97.322 Non-pressure chronic ulcer of left ankle with fat layer exposed; T81.31XA Disruption of external operation (surgical) wound, not elsewhere classified, initial encounter | CPT/HCPCS: 11042 ==

== ENCOUNTER 2023-08-18 08:06 | Outpatient (CLI) | payer MEDICARE, SELFPAY | END 2023-08-18 08:07 | disposition home or self-care (01) | PROVIDERS: Visit Provider Family Medicine | DX: I83.023 Varicose veins of left lower extremity with ulcer of ankle (principal); L97.322 Non-pressure chronic ulcer of left ankle with fat layer exposed; T81.31XA Disruption of external operation (surgical) wound, not elsewhere classified, initial encounter | CPT/HCPCS: 11042 ==

== ENCOUNTER 2023-08-25 08:03 | Outpatient (CLI) | payer MEDICARE, SELFPAY | END 2023-08-25 08:04 | disposition home or self-care (01) | LOC: WOUND 08:04 | PROVIDERS: Visit Provider Physician Assistant | DX: I83.023 Varicose veins of left lower extremity with ulcer of ankle (principal); L97.322 Non-pressure chronic ulcer of left ankle with fat layer exposed; T81.31XA Disruption of external operation (surgical) wound, not elsewhere classified, initial encounter | CPT/HCPCS: 97597 ==

== ENCOUNTER 2023-09-01 08:05 | Outpatient (CLI) | payer MEDICARE, SELFPAY | END 2023-09-01 08:06 | disposition home or self-care (01) | LOC: WOUND 08:05 | PROVIDERS: Visit Provider Physician Assistant | DX: I83.013 Varicose veins of right lower extremity with ulcer of ankle (principal); I83.023 Varicose veins of left lower extremity with ulcer of ankle; L97.312 Non-pressure chronic ulcer of right ankle with fat layer exposed; L97.322 Non-pressure chronic ulcer of left ankle with fat layer exposed | CPT/HCPCS: 97597 ==

== ENCOUNTER 2023-09-08 08:06 | Outpatient (CLI) | payer MEDICARE, SELFPAY | END 2023-09-08 08:07 | disposition home or self-care (01) | LOC: WOUND 08:06 | PROVIDERS: Visit Provider Family Medicine | DX: I83.223 Varicose veins of left lower extremity with both ulcer of ankle and inflammation (principal); L97.322 Non-pressure chronic ulcer of left ankle with fat layer exposed; I83.013 Varicose veins of right lower extremity with ulcer of ankle; L97.312 Non-pressure chronic ulcer of right ankle with fat layer exposed | CPT/HCPCS: 11042 ==

== ENCOUNTER 2023-09-16 08:18 | Outpatient (CLI) | payer MEDICARE, SELFPAY | END 2023-09-16 08:19 | disposition home or self-care (01) | LOC: WOUND 08:18 | PROVIDERS: Visit Provider Nurse Practitioner Family | DX: L97.322 Non-pressure chronic ulcer of left ankle with fat layer exposed (principal); I83.023 Varicose veins of left lower extremity with ulcer of ankle; L97.328 Non-pressure chronic ulcer of left ankle with other specified severity; I83.013 Varicose veins of right lower extremity with ulcer of ankle; L97.312 Non-pressure chronic ulcer of right ankle with fat layer exposed | CPT/HCPCS: 11042; 97597 ==

== ENCOUNTER 2023-09-22 08:07 | Outpatient (CLI) | payer MEDICARE, SELFPAY | END 2023-09-22 08:08 | disposition home or self-care (01) | LOC: WOUND 08:07 | PROVIDERS: Visit Provider Family Medicine | DX: I83.013 Varicose veins of right lower extremity with ulcer of ankle (principal); L97.312 Non-pressure chronic ulcer of right ankle with fat layer exposed; I83.023 Varicose veins of left lower extremity with ulcer of ankle; L97.322 Non-pressure chronic ulcer of left ankle with fat layer exposed; I83.025 Varicose veins of left lower extremity with ulcer other part of foot; L97.522 Non-pressure chronic ulcer of other part of left foot with fat layer exposed | CPT/HCPCS: 11042 ==

== ENCOUNTER 2023-09-29 08:02 | Outpatient (CLI) | payer MEDICARE, SELFPAY | END 2023-09-29 08:03 | disposition home or self-care (01) | LOC: WOUND 08:02 | PROVIDERS: Visit Provider Family Medicine | DX: I83.013 Varicose veins of right lower extremity with ulcer of ankle (principal); L97.312 Non-pressure chronic ulcer of right ankle with fat layer exposed; I83.023 Varicose veins of left lower extremity with ulcer of ankle; L97.322 Non-pressure chronic ulcer of left ankle with fat layer exposed; I83.025 Varicose veins of left lower extremity with ulcer other part of foot; L97.522 Non-pressure chronic ulcer of other part of left foot with fat layer exposed | CPT/HCPCS: 11042 ==

== ENCOUNTER 2023-10-06 08:02 | Outpatient (CLI) | payer MEDICARE, SELFPAY | END 2023-10-06 08:03 | disposition home or self-care (01) | LOC: WOUND 08:02 | PROVIDERS: Visit Provider Family Medicine | DX: I83.013 Varicose veins of right lower extremity with ulcer of ankle (principal); I83.023 Varicose veins of left lower extremity with ulcer of ankle; L97.312 Non-pressure chronic ulcer of right ankle with fat layer exposed; L97.322 Non-pressure chronic ulcer of left ankle with fat layer exposed | CPT/HCPCS: 11042 ==

== ENCOUNTER 2023-10-13 07:59 | Outpatient (CLI) | payer MEDICARE, SELFPAY | END 2023-10-13 08:00 | disposition home or self-care (01) | LOC: WOUND 07:59 | PROVIDERS: Visit Provider Physician Assistant | DX: I83.023 Varicose veins of left lower extremity with ulcer of ankle (principal); L97.322 Non-pressure chronic ulcer of left ankle with fat layer exposed; I83.013 Varicose veins of right lower extremity with ulcer of ankle; L97.312 Non-pressure chronic ulcer of right ankle with fat layer exposed | CPT/HCPCS: 97597 ==

== ENCOUNTER 2023-10-20 08:05 | Outpatient (CLI) | payer MEDICARE, SELFPAY | END 2023-10-20 08:06 | disposition home or self-care (01) | LOC: WOUND 08:05 | PROVIDERS: Visit Provider Family Medicine | DX: I83.013 Varicose veins of right lower extremity with ulcer of ankle (principal); I83.023 Varicose veins of left lower extremity with ulcer of ankle; L97.312 Non-pressure chronic ulcer of right ankle with fat layer exposed; L97.322 Non-pressure chronic ulcer of left ankle with fat layer exposed | CPT/HCPCS: 97597 ==

== ENCOUNTER 2023-10-27 08:06 | Outpatient (CLI) | payer MEDICARE, SELFPAY | END 2023-10-27 08:07 | disposition home or self-care (01) | PROVIDERS: Visit Provider Family Medicine | DX: I83.013 Varicose veins of right lower extremity with ulcer of ankle (principal); I83.023 Varicose veins of left lower extremity with ulcer of ankle; L97.312 Non-pressure chronic ulcer of right ankle with fat layer exposed; L97.322 Non-pressure chronic ulcer of left ankle with fat layer exposed | CPT/HCPCS: 11042 ==

== ENCOUNTER 2023-11-03 08:04 | Outpatient (CLI) | payer MEDICARE, SELFPAY | END 2023-11-03 08:05 | disposition home or self-care (01) | LOC: WOUND 08:04 | PROVIDERS: Visit Provider Surgery | DX: I83.013 Varicose veins of right lower extremity with ulcer of ankle (principal); L97.312 Non-pressure chronic ulcer of right ankle with fat layer exposed; I83.023 Varicose veins of left lower extremity with ulcer of ankle; L97.322 Non-pressure chronic ulcer of left ankle with fat layer exposed | CPT/HCPCS: 97597 ==

== ENCOUNTER 2023-11-17 08:03 | Outpatient (CLI) | payer MEDICARE, SELFPAY | END 2023-11-17 08:04 | disposition home or self-care (01) | LOC: WOUND 08:03 | PROVIDERS: Visit Provider Surgery | DX: I83.013 Varicose veins of right lower extremity with ulcer of ankle (principal); I83.023 Varicose veins of left lower extremity with ulcer of ankle; L97.312 Non-pressure chronic ulcer of right ankle with fat layer exposed; L97.322 Non-pressure chronic ulcer of left ankle with fat layer exposed | CPT/HCPCS: G0463 ==

== ENCOUNTER 2023-12-01 08:10 | Outpatient (CLI) | payer MEDICARE, SELFPAY ==
[2023-12-03 07:11] LABS: Anti-Nuclear Ab(ANA)IgG ELISA Detected (None Detected)
[2023-12-03 21:06] LABS: ANA Pattern Speckled; Antinuclear AntibodyHEp-2 Detected (<1:80)
== END 2023-12-01 08:11 | disposition home or self-care (01) ==
LOC: WOUND 08:10
PROVIDERS: Visit Provider Surgery
DX: I83.223 Varicose veins of left lower extremity with both ulcer of ankle and inflammation (principal); L97.322 Non-pressure chronic ulcer of left ankle with fat layer exposed; T81.89XA Other complications of procedures, not elsewhere classified, initial encounter; L24.A9 Irritant contact dermatitis due friction or contact with other specified body fluids; M06.9 Rheumatoid arthritis, unspecified
CPT/HCPCS: 36415; 86039; 97597; G0463

== ENCOUNTER 2023-12-08 08:03 | Outpatient (CLI) | payer MEDICARE, SELFPAY | END 2023-12-08 08:04 | disposition home or self-care (01) | LOC: WOUND 08:03 | PROVIDERS: Visit Provider Family Medicine | DX: I83.223 Varicose veins of left lower extremity with both ulcer of ankle and inflammation (principal); L97.322 Non-pressure chronic ulcer of left ankle with fat layer exposed; I83.013 Varicose veins of right lower extremity with ulcer of ankle; L97.312 Non-pressure chronic ulcer of right ankle with fat layer exposed; T81.89XA Other complications of procedures, not elsewhere classified, initial encounter; L24.A9 Irritant contact dermatitis due friction or contact with other specified body fluids | CPT/HCPCS: 11042; G0463 ==

== ENCOUNTER 2023-12-15 08:06 | Outpatient (CLI) | payer MEDICARE, SELFPAY | END 2023-12-15 08:07 | disposition home or self-care (01) | PROVIDERS: Visit Provider Surgery | DX: I83.013 Varicose veins of right lower extremity with ulcer of ankle (principal); I83.023 Varicose veins of left lower extremity with ulcer of ankle; L97.312 Non-pressure chronic ulcer of right ankle with fat layer exposed; L97.322 Non-pressure chronic ulcer of left ankle with fat layer exposed | CPT/HCPCS: 11042 ==

== ENCOUNTER 2023-12-22 08:11 | Outpatient (CLI) | payer MEDICARE, SELFPAY | END 2023-12-22 08:12 | disposition home or self-care (01) | LOC: WOUND 08:11 | PROVIDERS: Visit Provider Surgery | DX: I83.013 Varicose veins of right lower extremity with ulcer of ankle (principal); I83.023 Varicose veins of left lower extremity with ulcer of ankle; L97.312 Non-pressure chronic ulcer of right ankle with fat layer exposed; L97.322 Non-pressure chronic ulcer of left ankle with fat layer exposed | CPT/HCPCS: G0463 ==

== ENCOUNTER 2023-12-29 08:07 | Outpatient (CLI) | payer MEDICARE, SELFPAY | END 2023-12-29 08:08 | disposition home or self-care (01) | LOC: WOUND 08:07 | PROVIDERS: Visit Provider Surgery | DX: I83.023 Varicose veins of left lower extremity with ulcer of ankle (principal); I83.013 Varicose veins of right lower extremity with ulcer of ankle; L97.312 Non-pressure chronic ulcer of right ankle with fat layer exposed; L97.322 Non-pressure chronic ulcer of left ankle with fat layer exposed | CPT/HCPCS: 15271; 97597; Q4201 ==

== ENCOUNTER 2024-01-05 08:06 | Outpatient (CLI) | payer MEDICARE, SELFPAY | END 2024-01-05 08:07 | disposition home or self-care (01) | LOC: WOUND 08:06 | PROVIDERS: Visit Provider Surgery | DX: I83.223 Varicose veins of left lower extremity with both ulcer of ankle and inflammation (principal); L97.322 Non-pressure chronic ulcer of left ankle with fat layer exposed; I83.213 Varicose veins of right lower extremity with both ulcer of ankle and inflammation; L97.312 Non-pressure chronic ulcer of right ankle with fat layer exposed | CPT/HCPCS: G0463 ==

== ENCOUNTER 2024-01-12 08:09 | Outpatient (CLI) | payer MEDICARE, SELFPAY | END 2024-01-12 08:10 | disposition home or self-care (01) | LOC: WOUND 08:09 | PROVIDERS: Visit Provider Surgery | DX: I83.013 Varicose veins of right lower extremity with ulcer of ankle (principal); I83.023 Varicose veins of left lower extremity with ulcer of ankle; L97.318 Non-pressure chronic ulcer of right ankle with other specified severity; L97.322 Non-pressure chronic ulcer of left ankle with fat layer exposed | CPT/HCPCS: G0463 ==

== ENCOUNTER 2024-01-19 08:08 | Outpatient (CLI) | payer MEDICARE, SELFPAY | END 2024-01-19 08:09 | disposition home or self-care (01) | LOC: WOUND 08:08 | PROVIDERS: Visit Provider Surgery | DX: I83.023 Varicose veins of left lower extremity with ulcer of ankle (principal); L97.322 Non-pressure chronic ulcer of left ankle with fat layer exposed | CPT/HCPCS: 15271; Q4201 ==

== ENCOUNTER 2024-01-26 08:06 | Outpatient (CLI) | payer MEDICARE, SELFPAY | END 2024-01-26 08:07 | disposition home or self-care (01) | LOC: WOUND 08:06 | PROVIDERS: Visit Provider Surgery | DX: I83.023 Varicose veins of left lower extremity with ulcer of ankle (principal); L97.322 Non-pressure chronic ulcer of left ankle with fat layer exposed | CPT/HCPCS: G0463 ==

== ENCOUNTER 2024-02-02 08:05 | Outpatient (CLI) | payer MEDICARE, SELFPAY | END 2024-02-02 08:06 | disposition home or self-care (01) | LOC: WOUND 08:05 | PROVIDERS: Visit Provider Surgery | DX: I83.023 Varicose veins of left lower extremity with ulcer of ankle (principal); L97.322 Non-pressure chronic ulcer of left ankle with fat layer exposed | CPT/HCPCS: 97597 ==

== ENCOUNTER 2024-02-09 08:01 | Outpatient (CLI) | payer MEDICARE, SELFPAY | END 2024-02-09 08:02 | disposition home or self-care (01) | LOC: WOUND 08:01 | PROVIDERS: Visit Provider Surgery | DX: I83.223 Varicose veins of left lower extremity with both ulcer of ankle and inflammation (principal); L97.312 Non-pressure chronic ulcer of right ankle with fat layer exposed; L97.322 Non-pressure chronic ulcer of left ankle with fat layer exposed | CPT/HCPCS: 15271; Q4201 ==

== ENCOUNTER 2024-02-16 08:24 | Outpatient (CLI) | payer MEDICARE, SELFPAY | END 2024-02-16 08:25 | disposition home or self-care (01) | PROVIDERS: Visit Provider Surgery | DX: I83.223 Varicose veins of left lower extremity with both ulcer of ankle and inflammation (principal); L97.322 Non-pressure chronic ulcer of left ankle with fat layer exposed | CPT/HCPCS: G0463 ==

== ENCOUNTER 2024-02-23 08:06 | Outpatient (CLI) | payer MEDICARE, SELFPAY | END 2024-02-23 08:07 | disposition home or self-care (01) | LOC: WOUND 08:06 | PROVIDERS: Visit Provider Surgery | DX: I83.223 Varicose veins of left lower extremity with both ulcer of ankle and inflammation (principal); L97.322 Non-pressure chronic ulcer of left ankle with fat layer exposed | CPT/HCPCS: 97597 ==

== ENCOUNTER 2024-03-01 08:04 | Outpatient (CLI) | payer MEDICARE, SELFPAY | END 2024-03-01 08:05 | disposition home or self-care (01) | LOC: WOUND 08:04 | PROVIDERS: Visit Provider Surgery | DX: I87.312 Chronic venous hypertension (idiopathic) with ulcer of left lower extremity (principal); L97.322 Non-pressure chronic ulcer of left ankle with fat layer exposed | CPT/HCPCS: 97597 ==

== ENCOUNTER 2024-03-08 08:06 | Outpatient (CLI) | payer MEDICARE, SELFPAY | END 2024-03-08 08:07 | disposition home or self-care (01) | LOC: WOUND 08:06 | PROVIDERS: Visit Provider Surgery | DX: I83.223 Varicose veins of left lower extremity with both ulcer of ankle and inflammation (principal); L97.322 Non-pressure chronic ulcer of left ankle with fat layer exposed | CPT/HCPCS: 97597 ==

== ENCOUNTER 2024-03-15 08:01 | Outpatient (CLI) | payer MEDICARE, SELFPAY | END 2024-03-15 08:02 | disposition home or self-care (01) | LOC: WOUND 08:01 | PROVIDERS: Visit Provider Surgery | DX: I83.223 Varicose veins of left lower extremity with both ulcer of ankle and inflammation (principal); L97.322 Non-pressure chronic ulcer of left ankle with fat layer exposed | CPT/HCPCS: 97597 ==

== ENCOUNTER 2024-03-22 08:05 | Outpatient (CLI) | payer MEDICARE, SELFPAY | END 2024-03-22 08:06 | disposition home or self-care (01) | LOC: WOUND 08:05 | PROVIDERS: Visit Provider Surgery | DX: I83.223 Varicose veins of left lower extremity with both ulcer of ankle and inflammation (principal); L97.322 Non-pressure chronic ulcer of left ankle with fat layer exposed | CPT/HCPCS: 97597 ==

== ENCOUNTER 2024-03-29 08:04 | Outpatient (CLI) | payer MEDICARE, SELFPAY | END 2024-03-29 08:05 | disposition home or self-care (01) | LOC: WOUND 08:04 | PROVIDERS: Visit Provider Physician Assistant | DX: I83.223 Varicose veins of left lower extremity with both ulcer of ankle and inflammation (principal); L97.322 Non-pressure chronic ulcer of left ankle with fat layer exposed | CPT/HCPCS: 97597 ==

== ENCOUNTER 2024-04-05 08:05 | Outpatient (CLI) | payer MEDICARE, SELFPAY | END 2024-04-05 08:06 | disposition home or self-care (01) | LOC: WOUND 08:05 | PROVIDERS: Visit Provider Surgery | DX: I83.223 Varicose veins of left lower extremity with both ulcer of ankle and inflammation (principal); L97.321 Non-pressure chronic ulcer of left ankle limited to breakdown of skin | CPT/HCPCS: 97597 ==

== ENCOUNTER 2024-04-12 08:06 | Outpatient (CLI) | payer MEDICARE, SELFPAY | END 2024-04-12 08:07 | disposition home or self-care (01) | LOC: WOUND 08:06 | PROVIDERS: Visit Provider Surgery | DX: I83.223 Varicose veins of left lower extremity with both ulcer of ankle and inflammation (principal); L97.322 Non-pressure chronic ulcer of left ankle with fat layer exposed | CPT/HCPCS: 97597 ==

== ENCOUNTER 2024-04-19 08:02 | Outpatient (CLI) | payer MEDICARE, SELFPAY | END 2024-04-19 08:03 | disposition home or self-care (01) | PROVIDERS: Visit Provider Surgery | DX: I83.223 Varicose veins of left lower extremity with both ulcer of ankle and inflammation (principal); L97.322 Non-pressure chronic ulcer of left ankle with fat layer exposed | CPT/HCPCS: 97597 ==

== ENCOUNTER 2024-04-26 08:10 | Outpatient (CLI) | payer MEDICARE, SELFPAY | END 2024-04-26 08:11 | disposition home or self-care (01) | LOC: WOUND 08:10 | PROVIDERS: Visit Provider Surgery | DX: I83.223 Varicose veins of left lower extremity with both ulcer of ankle and inflammation (principal); L97.322 Non-pressure chronic ulcer of left ankle with fat layer exposed | CPT/HCPCS: 15271; Q4201 ==

== ENCOUNTER 2024-05-03 08:02 | Outpatient (CLI) | payer MEDICARE, SELFPAY | END 2024-05-03 08:03 | disposition home or self-care (01) | LOC: WOUND 08:06 | PROVIDERS: Visit Provider Surgery | DX: I83.223 Varicose veins of left lower extremity with both ulcer of ankle and inflammation (principal); L97.322 Non-pressure chronic ulcer of left ankle with fat layer exposed | CPT/HCPCS: G0463 ==

== ENCOUNTER 2024-05-10 08:05 | Outpatient (CLI) | payer MEDICARE, SELFPAY | END 2024-05-10 08:06 | disposition home or self-care (01) | LOC: WOUND 08:05 | PROVIDERS: Visit Provider Surgery | DX: I83.223 Varicose veins of left lower extremity with both ulcer of ankle and inflammation (principal); L97.322 Non-pressure chronic ulcer of left ankle with fat layer exposed | CPT/HCPCS: 97597 ==

== ENCOUNTER 2024-05-17 08:11 | Outpatient (CLI) | payer MEDICARE, SELFPAY | END 2024-05-17 08:12 | disposition home or self-care (01) | LOC: WOUND 08:11 | PROVIDERS: Visit Provider Surgery | DX: I83.223 Varicose veins of left lower extremity with both ulcer of ankle and inflammation (principal); L97.322 Non-pressure chronic ulcer of left ankle with fat layer exposed | CPT/HCPCS: 11042 ==

== ENCOUNTER 2024-05-24 08:04 | Outpatient (CLI) | payer MEDICARE, SELFPAY | END 2024-05-24 08:05 | disposition home or self-care (01) | LOC: WOUND 08:04 | PROVIDERS: Visit Provider Surgery | DX: I83.223 Varicose veins of left lower extremity with both ulcer of ankle and inflammation (principal); L97.322 Non-pressure chronic ulcer of left ankle with fat layer exposed | CPT/HCPCS: 97597 ==

== ENCOUNTER 2024-05-31 08:05 | Outpatient (CLI) | payer MEDICARE, SELFPAY | END 2024-05-31 08:06 | disposition home or self-care (01) | LOC: WOUND 08:05 | PROVIDERS: Visit Provider Surgery | DX: I83.223 Varicose veins of left lower extremity with both ulcer of ankle and inflammation (principal); L97.322 Non-pressure chronic ulcer of left ankle with fat layer exposed | CPT/HCPCS: 97597 ==

== ENCOUNTER 2024-06-07 08:06 | Outpatient (CLI) | payer MEDICARE, SELFPAY | END 2024-06-07 08:07 | disposition home or self-care (01) | LOC: WOUND 08:06 | PROVIDERS: Visit Provider Surgery | DX: I83.223 Varicose veins of left lower extremity with both ulcer of ankle and inflammation (principal); L97.322 Non-pressure chronic ulcer of left ankle with fat layer exposed | CPT/HCPCS: 97597 ==

== ENCOUNTER 2024-06-14 08:04 | Outpatient (CLI) | payer MEDICARE, SELFPAY | END 2024-06-14 08:05 | disposition home or self-care (01) | LOC: WOUND 08:04 | PROVIDERS: Visit Provider Surgery | DX: L97.322 Non-pressure chronic ulcer of left ankle with fat layer exposed; I83.223 Varicose veins of left lower extremity with both ulcer of ankle and inflammation | CPT/HCPCS: 15271; Q4201 ==

== ENCOUNTER 2024-06-21 07:59 | Outpatient (CLI) | payer MEDICARE, SELFPAY | END 2024-06-21 08:00 | disposition home or self-care (01) | LOC: WOUND 08:04 | PROVIDERS: Visit Provider Nurse Practitioner Family | DX: I83.223 Varicose veins of left lower extremity with both ulcer of ankle and inflammation (principal); L97.322 Non-pressure chronic ulcer of left ankle with fat layer exposed | CPT/HCPCS: G0463 ==

== ENCOUNTER 2024-06-28 08:04 | Outpatient (CLI) | payer MEDICARE, SELFPAY | END 2024-06-28 08:05 | disposition home or self-care (01) | LOC: WOUND 08:04 | PROVIDERS: Visit Provider Nurse Practitioner Family | DX: I83.223 Varicose veins of left lower extremity with both ulcer of ankle and inflammation (principal); L97.322 Non-pressure chronic ulcer of left ankle with fat layer exposed | CPT/HCPCS: 97597 ==

== ENCOUNTER 2024-07-05 08:04 | Outpatient (CLI) | payer MEDICARE, SELFPAY | END 2024-07-05 08:05 | disposition home or self-care (01) | LOC: WOUND 08:04 | PROVIDERS: Visit Provider Nurse Practitioner Family | DX: I83.223 Varicose veins of left lower extremity with both ulcer of ankle and inflammation (principal); L97.322 Non-pressure chronic ulcer of left ankle with fat layer exposed | CPT/HCPCS: 11042 ==

== ENCOUNTER 2024-07-12 07:59 | Outpatient (CLI) | payer MEDICARE, SELFPAY | END 2024-07-12 08:00 | disposition home or self-care (01) | LOC: WOUND 07:59 | PROVIDERS: Visit Provider Nurse Practitioner Family | DX: I83.223 Varicose veins of left lower extremity with both ulcer of ankle and inflammation (principal); L97.322 Non-pressure chronic ulcer of left ankle with fat layer exposed | CPT/HCPCS: 11042 ==

== ENCOUNTER 2024-07-19 08:01 | Outpatient (CLI) | payer MEDICARE, SELFPAY | END 2024-07-19 08:02 | disposition home or self-care (01) | PROVIDERS: Visit Provider Nurse Practitioner Family | DX: I83.223 Varicose veins of left lower extremity with both ulcer of ankle and inflammation (principal); L97.322 Non-pressure chronic ulcer of left ankle with fat layer exposed | CPT/HCPCS: 15271; Q4201 ==

== ENCOUNTER 2024-07-26 08:05 | Outpatient (CLI) | payer MEDICARE, SELFPAY | END 2024-07-26 08:06 | disposition home or self-care (01) | LOC: WOUND 08:05 | PROVIDERS: Visit Provider Nurse Practitioner Family | DX: I83.223 Varicose veins of left lower extremity with both ulcer of ankle and inflammation (principal); L97.322 Non-pressure chronic ulcer of left ankle with fat layer exposed | CPT/HCPCS: G0463 ==

== ENCOUNTER 2024-08-02 08:04 | Outpatient (CLI) | payer MEDICARE, SELFPAY | END 2024-08-02 08:05 | disposition home or self-care (01) | LOC: WOUND 08:04 | PROVIDERS: Visit Provider Nurse Practitioner Family | DX: I83.223 Varicose veins of left lower extremity with both ulcer of ankle and inflammation (principal); L97.322 Non-pressure chronic ulcer of left ankle with fat layer exposed | CPT/HCPCS: 97597 ==

== ENCOUNTER 2024-08-17 07:56 | Outpatient (CLI) | payer MEDICARE, SELFPAY | END 2024-08-17 07:57 | disposition home or self-care (01) | PROVIDERS: Visit Provider Nurse Practitioner Family | DX: I83.223 Varicose veins of left lower extremity with both ulcer of ankle and inflammation (principal); L97.322 Non-pressure chronic ulcer of left ankle with fat layer exposed | CPT/HCPCS: 97597 ==

== ENCOUNTER 2024-08-23 08:05 | Outpatient (CLI) | payer MEDICARE, SELFPAY | END 2024-08-23 08:06 | disposition home or self-care (01) | LOC: WOUND 08:06 | PROVIDERS: Visit Provider Nurse Practitioner Family | DX: I83.223 Varicose veins of left lower extremity with both ulcer of ankle and inflammation (principal); L97.322 Non-pressure chronic ulcer of left ankle with fat layer exposed | CPT/HCPCS: 97597 ==

== ENCOUNTER 2024-08-30 07:58 | Outpatient (CLI) | payer MEDICARE, SELFPAY | END 2024-08-30 07:59 | disposition home or self-care (01) | LOC: WOUND 07:58 | PROVIDERS: Visit Provider Nurse Practitioner Family | DX: I83.223 Varicose veins of left lower extremity with both ulcer of ankle and inflammation (principal); L97.322 Non-pressure chronic ulcer of left ankle with fat layer exposed | CPT/HCPCS: 11042 ==

== ENCOUNTER 2024-09-06 07:58 | Outpatient (CLI) | payer MEDICARE, SELFPAY | END 2024-09-06 07:59 | disposition home or self-care (01) | LOC: WOUND 07:58 | PROVIDERS: Visit Provider Nurse Practitioner Family | DX: I83.223 Varicose veins of left lower extremity with both ulcer of ankle and inflammation (principal); L97.322 Non-pressure chronic ulcer of left ankle with fat layer exposed | CPT/HCPCS: 15271; Q4121 ==

== ENCOUNTER 2024-09-13 07:55 | Outpatient (CLI) | payer MEDICARE, SELFPAY | END 2024-09-13 07:56 | disposition home or self-care (01) | LOC: WOUND 07:55 | PROVIDERS: Visit Provider Nurse Practitioner Family | DX: I83.223 Varicose veins of left lower extremity with both ulcer of ankle and inflammation (principal); L97.322 Non-pressure chronic ulcer of left ankle with fat layer exposed | CPT/HCPCS: G0463 ==

== ENCOUNTER 2024-09-20 07:55 | Outpatient (CLI) | payer MEDICARE, SELFPAY | END 2024-09-20 07:56 | disposition home or self-care (01) | LOC: WOUND 07:55 | PROVIDERS: Visit Provider Nurse Practitioner Family | DX: I83.223 Varicose veins of left lower extremity with both ulcer of ankle and inflammation (principal); L97.322 Non-pressure chronic ulcer of left ankle with fat layer exposed | CPT/HCPCS: 11042 ==

== ENCOUNTER 2024-09-27 07:55 | Outpatient (CLI) | payer MEDICARE, SELFPAY | END 2024-09-27 07:56 | disposition home or self-care (01) | LOC: WOUND 07:55 | PROVIDERS: Visit Provider Nurse Practitioner Family | DX: I83.223 Varicose veins of left lower extremity with both ulcer of ankle and inflammation (principal); L97.322 Non-pressure chronic ulcer of left ankle with fat layer exposed | CPT/HCPCS: 15271; Q4121 ==

== ENCOUNTER 2024-10-04 07:55 | Outpatient (CLI) | payer MEDICARE, SELFPAY | END 2024-10-04 07:56 | disposition home or self-care (01) | LOC: WOUND 07:55 | PROVIDERS: Visit Provider Nurse Practitioner Family | DX: I83.223 Varicose veins of left lower extremity with both ulcer of ankle and inflammation (principal); L97.322 Non-pressure chronic ulcer of left ankle with fat layer exposed; L97.521 Non-pressure chronic ulcer of other part of left foot limited to breakdown of skin | CPT/HCPCS: G0463 ==

== ENCOUNTER 2024-10-11 07:59 | Outpatient (CLI) | payer MEDICARE, SELFPAY | END 2024-10-11 08:00 | disposition home or self-care (01) | LOC: WOUND 07:59 | PROVIDERS: Visit Provider Nurse Practitioner Family | DX: I83.223 Varicose veins of left lower extremity with both ulcer of ankle and inflammation (principal); L97.322 Non-pressure chronic ulcer of left ankle with fat layer exposed | CPT/HCPCS: 97597 ==

== ENCOUNTER 2024-10-19 10:41 | Outpatient (CLI) | payer MEDICARE, SELFPAY | END 2024-10-19 10:42 | disposition home or self-care (01) | LOC: WOUND 10:41 | PROVIDERS: Visit Provider Nurse Practitioner Family | DX: I83.223 Varicose veins of left lower extremity with both ulcer of ankle and inflammation (principal); L97.322 Non-pressure chronic ulcer of left ankle with fat layer exposed | CPT/HCPCS: 97597 ==

== ENCOUNTER 2024-10-25 08:04 | Outpatient (CLI) | payer MEDICARE, SELFPAY | END 2024-10-25 08:05 | disposition home or self-care (01) | LOC: WOUND 08:04 | PROVIDERS: Visit Provider Nurse Practitioner Family | DX: I83.223 Varicose veins of left lower extremity with both ulcer of ankle and inflammation (principal); L97.322 Non-pressure chronic ulcer of left ankle with fat layer exposed | CPT/HCPCS: 97597 ==

== ENCOUNTER 2024-11-02 14:46 | Outpatient (CLI) | payer MEDICARE, SELFPAY | END 2024-11-02 14:47 | disposition home or self-care (01) | LOC: WOUND 14:46 | PROVIDERS: Visit Provider Nurse Practitioner Family | DX: I83.223 Varicose veins of left lower extremity with both ulcer of ankle and inflammation (principal); L97.322 Non-pressure chronic ulcer of left ankle with fat layer exposed | CPT/HCPCS: 97597 ==

== ENCOUNTER 2024-11-08 08:04 | Outpatient (CLI) | payer MEDICARE, SELFPAY | END 2024-11-08 08:05 | disposition home or self-care (01) | LOC: WOUND 08:04 | PROVIDERS: Visit Provider Family Medicine | DX: I83.223 Varicose veins of left lower extremity with both ulcer of ankle and inflammation (principal); L97.322 Non-pressure chronic ulcer of left ankle with fat layer exposed | CPT/HCPCS: 11042 ==

== ENCOUNTER 2024-11-15 08:04 | Outpatient (CLI) | payer MEDICARE, SELFPAY | END 2024-11-15 08:05 | disposition home or self-care (01) | LOC: WOUND 08:05 | PROVIDERS: Visit Provider Nurse Practitioner Family | DX: I83.223 Varicose veins of left lower extremity with both ulcer of ankle and inflammation (principal); L97.322 Non-pressure chronic ulcer of left ankle with fat layer exposed | CPT/HCPCS: 97597 ==

== ENCOUNTER 2024-11-22 08:07 | Outpatient (CLI) | payer MEDICARE, SELFPAY | END 2024-11-22 08:08 | disposition home or self-care (01) | LOC: WOUND 08:07 | PROVIDERS: Visit Provider Nurse Practitioner Family | DX: I83.223 Varicose veins of left lower extremity with both ulcer of ankle and inflammation (principal); L97.322 Non-pressure chronic ulcer of left ankle with fat layer exposed | CPT/HCPCS: 97597 ==

== ENCOUNTER 2024-11-29 08:07 | Outpatient (CLI) | payer MEDICARE, SELFPAY | END 2024-11-29 08:08 | disposition home or self-care (01) | LOC: WOUND 08:07 | PROVIDERS: Visit Provider Nurse Practitioner Family | DX: I83.223 Varicose veins of left lower extremity with both ulcer of ankle and inflammation (principal); L97.322 Non-pressure chronic ulcer of left ankle with fat layer exposed | CPT/HCPCS: G0463 ==

== ENCOUNTER 2024-12-06 08:05 | Outpatient (CLI) | payer MEDICARE, SELFPAY | END 2024-12-06 08:06 | disposition home or self-care (01) | LOC: WOUND 08:05 | PROVIDERS: Visit Provider Nurse Practitioner Family | DX: I83.223 Varicose veins of left lower extremity with both ulcer of ankle and inflammation (principal); L97.321 Non-pressure chronic ulcer of left ankle limited to breakdown of skin | CPT/HCPCS: G0463 ==

== ENCOUNTER 2024-12-13 08:05 | Outpatient (CLI) | payer MEDICARE, SELFPAY | END 2024-12-13 08:06 | disposition home or self-care (01) | LOC: WOUND 08:05 | PROVIDERS: Visit Provider Nurse Practitioner Family | DX: I83.023 Varicose veins of left lower extremity with ulcer of ankle (principal); L97.328 Non-pressure chronic ulcer of left ankle with other specified severity | CPT/HCPCS: G0463 ==

== ENCOUNTER 2024-12-20 08:07 | Outpatient (CLI) | payer MEDICARE, SELFPAY | END 2024-12-20 08:08 | disposition home or self-care (01) | LOC: WOUND 08:07 | PROVIDERS: Visit Provider Nurse Practitioner Family | DX: I83.92 Asymptomatic varicose veins of left lower extremity (principal) | CPT/HCPCS: G0463 ==

== ENCOUNTER 2025-01-03 08:09 | Outpatient (CLI) | payer MEDICARE, SELFPAY | END 2025-01-03 08:10 | disposition home or self-care (01) | LOC: WOUND 08:09 | PROVIDERS: Visit Provider Nurse Practitioner Family | DX: I83.92 Asymptomatic varicose veins of left lower extremity (principal) | CPT/HCPCS: G0463 ==

== ENCOUNTER 2025-02-08 12:29 | Outpatient (CLI) | payer MEDICARE, SELFPAY | END 2025-02-08 12:30 | disposition home or self-care (01) | LOC: WOUND 12:29 | PROVIDERS: Visit Provider Nurse Practitioner Family | DX: I70.243 Atherosclerosis of native arteries of left leg with ulceration of ankle (principal); I70.233 Atherosclerosis of native arteries of right leg with ulceration of ankle; I87.333 Chronic venous hypertension (idiopathic) with ulcer and inflammation of bilateral lower extremity; L97.312 Non-pressure chronic ulcer of right ankle with fat layer exposed; L97.322 Non-pressure chronic ulcer of left ankle with fat layer exposed | CPT/HCPCS: 97597; G0463 ==

== ENCOUNTER 2025-02-15 08:37 | Outpatient (CLI) | payer MEDICARE, SELFPAY | END 2025-02-15 08:38 | disposition home or self-care (01) | LOC: WOUND 08:37 | PROVIDERS: Visit Provider Physician Assistant | DX: I87.333 Chronic venous hypertension (idiopathic) with ulcer and inflammation of bilateral lower extremity (principal); I70.243 Atherosclerosis of native arteries of left leg with ulceration of ankle; I70.233 Atherosclerosis of native arteries of right leg with ulceration of ankle; L97.322 Non-pressure chronic ulcer of left ankle with fat layer exposed; L97.312 Non-pressure chronic ulcer of right ankle with fat layer exposed | CPT/HCPCS: 97597 ==

== ENCOUNTER 2025-02-22 08:14 | Outpatient (CLI) | payer MEDICARE, SELFPAY | END 2025-02-22 08:15 | disposition home or self-care (01) | LOC: WOUND 08:14 | PROVIDERS: Visit Provider Nurse Practitioner Family | DX: I70.233 Atherosclerosis of native arteries of right leg with ulceration of ankle (principal); I87.331 Chronic venous hypertension (idiopathic) with ulcer and inflammation of right lower extremity; L97.312 Non-pressure chronic ulcer of right ankle with fat layer exposed | CPT/HCPCS: 97597 ==

== ENCOUNTER 2025-03-01 08:11 | Outpatient (CLI) | payer MEDICARE, SELFPAY | END 2025-03-01 08:12 | disposition home or self-care (01) | LOC: WOUND 08:11 | PROVIDERS: Visit Provider Nurse Practitioner Family | DX: I87.333 Chronic venous hypertension (idiopathic) with ulcer and inflammation of bilateral lower extremity (principal); I70.243 Atherosclerosis of native arteries of left leg with ulceration of ankle; I70.233 Atherosclerosis of native arteries of right leg with ulceration of ankle; L97.322 Non-pressure chronic ulcer of left ankle with fat layer exposed; L97.312 Non-pressure chronic ulcer of right ankle with fat layer exposed | CPT/HCPCS: G0463 ==

== ENCOUNTER 2025-03-08 08:34 | Outpatient (CLI) | payer MEDICARE, SELFPAY | END 2025-03-08 08:35 | disposition home or self-care (01) | LOC: WOUND 08:34 | PROVIDERS: Visit Provider Nurse Practitioner Family | DX: I87.333 Chronic venous hypertension (idiopathic) with ulcer and inflammation of bilateral lower extremity (principal); I70.243 Atherosclerosis of native arteries of left leg with ulceration of ankle; I70.233 Atherosclerosis of native arteries of right leg with ulceration of ankle; L97.312 Non-pressure chronic ulcer of right ankle with fat layer exposed; L97.322 Non-pressure chronic ulcer of left ankle with fat layer exposed | CPT/HCPCS: G0463 ==

== ENCOUNTER 2025-03-15 08:16 | Outpatient (CLI) | payer MEDICARE, SELFPAY | END 2025-03-15 08:17 | disposition home or self-care (01) | LOC: WOUND 08:17 | PROVIDERS: Visit Provider Nurse Practitioner Family | DX: I87.332 Chronic venous hypertension (idiopathic) with ulcer and inflammation of left lower extremity (principal); I70.243 Atherosclerosis of native arteries of left leg with ulceration of ankle; I89.0 Lymphedema, not elsewhere classified; L97.322 Non-pressure chronic ulcer of left ankle with fat layer exposed | CPT/HCPCS: 97597 ==

== ENCOUNTER 2025-03-22 08:15 | Outpatient (CLI) | payer MEDICARE, SELFPAY | END 2025-03-22 08:16 | disposition home or self-care (01) | LOC: WOUND 08:15 | PROVIDERS: Visit Provider Nurse Practitioner Family | DX: I87.333 Chronic venous hypertension (idiopathic) with ulcer and inflammation of bilateral lower extremity (principal); I70.243 Atherosclerosis of native arteries of left leg with ulceration of ankle; I70.233 Atherosclerosis of native arteries of right leg with ulceration of ankle; L97.312 Non-pressure chronic ulcer of right ankle with fat layer exposed; L97.322 Non-pressure chronic ulcer of left ankle with fat layer exposed | CPT/HCPCS: 11102; 88305; 97597 ==

== ENCOUNTER 2025-03-29 08:13 | Outpatient (CLI) | payer MEDICARE, SELFPAY | END 2025-03-29 08:14 | disposition home or self-care (01) | LOC: WOUND 08:13 | PROVIDERS: Visit Provider Nurse Practitioner Family | DX: I87.333 Chronic venous hypertension (idiopathic) with ulcer and inflammation of bilateral lower extremity (principal); I70.243 Atherosclerosis of native arteries of left leg with ulceration of ankle; I70.233 Atherosclerosis of native arteries of right leg with ulceration of ankle; I89.0 Lymphedema, not elsewhere classified; L97.322 Non-pressure chronic ulcer of left ankle with fat layer exposed; L97.312 Non-pressure chronic ulcer of right ankle with fat layer exposed | CPT/HCPCS: G0463 ==

== ENCOUNTER 2025-04-06 10:32 | Outpatient (CLI) | payer MEDICARE, SELFPAY | END 2025-04-06 10:33 | disposition home or self-care (01) | LOC: WOUND 10:32 | PROVIDERS: Visit Provider Nurse Practitioner Family | DX: I87.333 Chronic venous hypertension (idiopathic) with ulcer and inflammation of bilateral lower extremity (principal); I70.243 Atherosclerosis of native arteries of left leg with ulceration of ankle; I89.0 Lymphedema, not elsewhere classified; I70.233 Atherosclerosis of native arteries of right leg with ulceration of ankle; L97.312 Non-pressure chronic ulcer of right ankle with fat layer exposed; L97.322 Non-pressure chronic ulcer of left ankle with fat layer exposed; L88 Pyoderma gangrenosum | CPT/HCPCS: G0463 ==

== ENCOUNTER 2025-04-12 08:18 | Outpatient (CLI) | payer MEDICARE, SELFPAY | END 2025-04-12 08:19 | disposition home or self-care (01) | LOC: WOUND 08:18 | PROVIDERS: Visit Provider Nurse Practitioner Family | DX: I87.333 Chronic venous hypertension (idiopathic) with ulcer and inflammation of bilateral lower extremity (principal); I70.243 Atherosclerosis of native arteries of left leg with ulceration of ankle; I70.233 Atherosclerosis of native arteries of right leg with ulceration of ankle; I89.0 Lymphedema, not elsewhere classified; L97.312 Non-pressure chronic ulcer of right ankle with fat layer exposed; L97.322 Non-pressure chronic ulcer of left ankle with fat layer exposed; L88 Pyoderma gangrenosum | CPT/HCPCS: G0463 ==

== ENCOUNTER 2025-04-19 08:16 | Outpatient (CLI) | payer MEDICARE, SELFPAY | END 2025-04-19 08:17 | disposition home or self-care (01) | LOC: WOUND 08:16 | PROVIDERS: Visit Provider Nurse Practitioner Family | DX: I70.243 Atherosclerosis of native arteries of left leg with ulceration of ankle (principal); I70.233 Atherosclerosis of native arteries of right leg with ulceration of ankle; I87.313 Chronic venous hypertension (idiopathic) with ulcer of bilateral lower extremity; L88 Pyoderma gangrenosum; L97.322 Non-pressure chronic ulcer of left ankle with fat layer exposed; L97.318 Non-pressure chronic ulcer of right ankle with other specified severity | CPT/HCPCS: G0463 ==

== ENCOUNTER 2025-04-26 08:16 | Outpatient (CLI) | payer MEDICARE, SELFPAY | END 2025-04-26 08:17 | disposition home or self-care (01) | LOC: WOUND 08:16 | PROVIDERS: Visit Provider Nurse Practitioner Family | DX: I87.312 Chronic venous hypertension (idiopathic) with ulcer of left lower extremity (principal); I70.243 Atherosclerosis of native arteries of left leg with ulceration of ankle; I89.0 Lymphedema, not elsewhere classified; L88 Pyoderma gangrenosum; L97.322 Non-pressure chronic ulcer of left ankle with fat layer exposed | CPT/HCPCS: G0463 ==

== ENCOUNTER 2025-05-03 08:24 | Outpatient (CLI) | payer MEDICARE, SELFPAY | END 2025-05-03 08:25 | disposition home or self-care (01) | LOC: WOUND 08:24 | PROVIDERS: Visit Provider Nurse Practitioner Family | DX: L88 Pyoderma gangrenosum (principal); I89.0 Lymphedema, not elsewhere classified | CPT/HCPCS: G0463 ==

== ENCOUNTER 2025-05-10 08:17 | Outpatient (CLI) | payer MEDICARE, SELFPAY | END 2025-05-10 08:18 | disposition home or self-care (01) | LOC: WOUND 08:17 | DX: L88 Pyoderma gangrenosum (principal) | CPT/HCPCS: G0463 ==

== ENCOUNTER 2025-05-17 08:14 | Outpatient (CLI) | payer MEDICARE, SELFPAY | END 2025-05-17 08:15 | disposition home or self-care (01) | LOC: WOUND 08:14 | PROVIDERS: Visit Provider Nurse Practitioner Family | DX: L88 Pyoderma gangrenosum (principal); I89.0 Lymphedema, not elsewhere classified; I87.312 Chronic venous hypertension (idiopathic) with ulcer of left lower extremity; L97.322 Non-pressure chronic ulcer of left ankle with fat layer exposed | CPT/HCPCS: G0463 ==

== ENCOUNTER 2025-05-24 08:15 | Outpatient (CLI) | payer MEDICARE, SELFPAY | END 2025-05-24 08:16 | disposition home or self-care (01) | LOC: WOUND 08:15 | PROVIDERS: Visit Provider Nurse Practitioner Family | DX: L88 Pyoderma gangrenosum (principal); I89.0 Lymphedema, not elsewhere classified; I87.312 Chronic venous hypertension (idiopathic) with ulcer of left lower extremity; L97.322 Non-pressure chronic ulcer of left ankle with fat layer exposed | CPT/HCPCS: 97597 ==

== ENCOUNTER 2025-06-07 08:17 | Outpatient (CLI) | payer MEDICARE, SELFPAY | END 2025-06-07 08:18 | disposition home or self-care (01) | LOC: WOUND 08:17 | DX: L88 Pyoderma gangrenosum (principal); I89.0 Lymphedema, not elsewhere classified; I87.312 Chronic venous hypertension (idiopathic) with ulcer of left lower extremity; L97.322 Non-pressure chronic ulcer of left ankle with fat layer exposed | CPT/HCPCS: G0463 ==

== ENCOUNTER 2025-06-14 13:00 | Outpatient (CLI) | payer MEDICARE, SELFPAY | END 2025-06-14 13:01 | disposition home or self-care (01) | LOC: WOUND 13:00 | PROVIDERS: Visit Provider Nurse Practitioner Family | DX: L88 Pyoderma gangrenosum (principal); I89.0 Lymphedema, not elsewhere classified; I87.312 Chronic venous hypertension (idiopathic) with ulcer of left lower extremity; L97.322 Non-pressure chronic ulcer of left ankle with fat layer exposed | CPT/HCPCS: G0463 ==

== ENCOUNTER 2025-06-28 08:19 | Outpatient (CLI) | payer MEDICARE, SELFPAY ==
[2025-06-28 09:19] LABS: Hematocrit* 46.1 % (33.0-51.0); Hemoglobin* 15.2 gm/dL (12.0-16.0); Immature Granulocytes Abs Auto 0.00 K/uL (0.00-0.30); Immature Granulocytes Pct Auto 0.0 %; Lymphocytes Absolute Auto 1.58 K/uL (0.90-2.90); Mean Corpuscular HGB Conc 33 gm/dL (32-36); Mean Corpuscular Hemoglobin 32 pg (26-34); Mean Corpuscular Volume 96 fL (80-100); RDW Coefficient of Variation % 12.9 % (11.5-15.5); Red Blood Count* 4.81 m/uL (4.00-5.20); White Blood Count* 4.70 K/uL (4.50-11.00)
[2025-06-28 09:20] LABS: Slide Review Reflex No
[2025-06-28 09:30] LABS: Chloride* 100 mmol/L (96-114); Potassium* 4.3 mmol/L (3.6-5.1); Sodium* 137 mmol/L (135-149)
[2025-06-28 09:33] LABS: Anion Gap 11 mEq/L (7-15); Blood Urea Nitrogen* 17 mg/dL (7-30); Calcium* 9.7 mg/dL (8.4-10.6); Carbon Dioxide* 26 mmol/L (20-32); Creatinine* 0.7 mg/dL (0.5-1.5); Estimated Glomerular Filt Rate 88 ml/min; Glucose* 103 mg/dL (60-115)
== END 2025-06-28 08:20 | disposition home or self-care (01) ==
LOC: WOUND 08:19
PROVIDERS: Visit Provider Nurse Practitioner Family
DX: L88 Pyoderma gangrenosum (principal); I87.312 Chronic venous hypertension (idiopathic) with ulcer of left lower extremity; I89.0 Lymphedema, not elsewhere classified; L97.328 Non-pressure chronic ulcer of left ankle with other specified severity
CPT/HCPCS: 36415; 80048; 85025; 86140; G0463

== ENCOUNTER 2025-07-05 08:19 | Outpatient (CLI) | payer MEDICARE, SELFPAY | END 2025-07-05 08:20 | disposition home or self-care (01) | LOC: WOUND 08:19 | PROVIDERS: Visit Provider Nurse Practitioner Family | DX: L88 Pyoderma gangrenosum (principal); I89.0 Lymphedema, not elsewhere classified | CPT/HCPCS: G0463 ==

== ENCOUNTER 2025-07-19 08:20 | Outpatient (CLI) | payer MEDICARE, SELFPAY | END 2025-07-19 08:21 | disposition home or self-care (01) | LOC: WOUND 08:20 | PROVIDERS: Visit Provider Nurse Practitioner Family | DX: L88 Pyoderma gangrenosum (principal); I89.0 Lymphedema, not elsewhere classified | CPT/HCPCS: G0463 ==